=== PATIENT | female | born 1995 | race Caucasian/White ===

== ENCOUNTER → 2021-07-11 10:28 | Outpatient (BNVA) | payer OTHER, SELFPAY | PROVIDERS: PCP Internal Medicine; Visit Provider Obstetrics & Gynecology | DX: Z30.09 Encounter for other general counseling and advice on contraception (principal) | CPT/HCPCS: 99212 ==

== ENCOUNTER 2021-08-09 09:52 | Outpatient (REF) | payer OTHER, SELFPAY ==
[2021-08-10 02:47] LABS: CT PCR NOT DETECTED (Not Detect.); NG PCR NOT DETECTED (Not Detect.)
== END 2021-08-09 09:53 | disposition home or self-care (01) ==
LOC: HO.LAB 09:52
PROVIDERS: PCP Internal Medicine; Visit Provider Obstetrics & Gynecology
DX: Z30.09 Encounter for other general counseling and advice on contraception (principal)
CPT/HCPCS: 87491; 87591; 88142

== ENCOUNTER → 2021-09-11 10:07 | Outpatient (BNVA) | payer OTHER, SELFPAY | PROVIDERS: PCP Internal Medicine; Visit Provider Obstetrics & Gynecology | DX: Z30.433 Encounter for removal and reinsertion of intrauterine contraceptive device (principal) | CPT/HCPCS: 58300; 58301 ==

== ENCOUNTER 2022-01-22 09:34 | Outpatient (REF) | payer OTHER, SELFPAY ==
[2022-01-22 12:00] LABS: Alanine Aminotransferase 40 U/L (0-31); Albumin Level 4.6 g/dL (3.5-5.0); Alkaline Phosphatase 55 U/L (39-117); Anion Gap 13 (12-20); Aspartate Amino Transferase 40 U/L (5-31); Bilirubin Total 2.2 mg/dL (0.0-1.0); Blood Urea Nitrogen 8 mg/dL (9-16); Calcium 9.5 mg/dL (8.4-10.2); Carbon Dioxide 25 mmol/L (22-29); Chloride 106 mmol/L (96-108); Cholesterol 171 mg/dL; Estimated Glomerular Filt Rate > 60; Glucose Fasting 72 mg/dL (60-99); HDL Cholesterol 42 mg/dL; LDL Cholesterol Calculated 105 mg/dl; Potassium 4.1 mmol/L (3.3-5.1); Sodium 140 mmol/L (135-145); Total Protein 7.4 g/dL (6.5-8.0); Triglycerides 123 mg/dL
[2022-01-22 12:19] LABS: HBS Num1 2.04 mIU/mL (0-7.99); HBc Num1 0.15 S/CO (0.00-0.79); HBsAGNum1 0.18 S/CO (0.00-0.99); HIV AB/AG Nonreactive (Nonreactive); HIV Num 1 0.06 S/CO (0.00-0.99); Hepatitis B Core Antibody Nonreactive (Nonreactive); Hepatitis B Surface Antigen Negative (Negative); ~HepC Num1 0.09 S/CO (0.00-0.79); ~Hepatitis B Surface Antibody NONREACTIVE (Nonreactive); ~Hepatitis C Antibody Nonreactive (Nonreactive)
[2022-01-22 12:30] LABS: Free T4 (Free Thyroxine) 1.16 ng/dL (0.71-1.85); Vitamin D 25-OH Total 6.9 ng/mL (>30)
[2022-01-22 13:02] LABS: Thyroid Stimulating Hormone > 100.00 uIU/mL (0.32-4.0)
[2022-01-23 08:42] LABS: Triiodothyronine T3 Total 68 ng/dL (76-181)
[2022-01-23 09:02] LABS: Syphilis Screen Nonreactive (Nonreactive)
== END 2022-01-22 09:35 | disposition home or self-care (01) ==
LOC: HO.WFDLDS 09:34
PROVIDERS: Visit Provider Family Medicine
DX: Z00.00 Encounter for general adult medical examination without abnormal findings (principal); Z11.4 Encounter for screening for human immunodeficiency virus [HIV]; Z11.3 Encounter for screening for infections with a predominantly sexual mode of transmission; E03.9 Hypothyroidism, unspecified; E55.9 Vitamin D deficiency, unspecified
CPT/HCPCS: 36415; 80053; 80061; 82306; 84439; 84443; 84480; 86704; 86706; 86780; 86803; 87340; 87389

== ENCOUNTER 2023-03-17 09:38 | Outpatient (AMB) | payer OTHER, SELFPAY ==
--- NOTE | 2023-03-17 09:44 | MHC.PC.OV ---
Vital Signs 03/17/23 09:46 Height 4 ft 8 in Weight 190 lb 4 oz BMI 42.6 BP 124/72 Blood Pressure Location Lt brachial Position Sitting Pulse 76 Pulse Source Pulse Oximeter Pulse Oximetry (%) 98 Intake Visit Reasons: f/u medication Intake Note: pt is here f/u on levothyroxine requesting blood work to check levels Geology Scientist Required: No Accompanied by: Self / Same As Patient Allergies amoxicillin [AMOXICILLIN] Allergy (Unknown, Verified 03/17/23 09:44) N/V, vomiting hydromorphone [Dilaudid] Allergy (Unknown, Verified 03/17/23 09:44) vomitting morphine [MORPHINE] Allergy (Unknown, Verified 03/17/23 09:44) ANAPHYLAXIS Tobacco use date assessed: 03/17/23 Dental Screening Dental Screen Date: 03/17/23 Did you have a dental visit in the last 12 months?: No Did you have a dental problem in the last 6 months where you did not have access to dental care?: No Was dental information given to patient?: Yes HPI HPI Comments History of Present Illness Details 27-year-old female presents for hypothyroidism follow-up. She reports a painless lump below her left earlobe which has been present for the past 2 years. She notes that the lump has grown in size. No toothache or sore throat. Her TSH and T3 were elevated and T4 was normal in December. She reports history of anxiety, depression, and bipolar. She notes that she sees a therapist every other week. She is waiting to get connected to a psychiatrist to have psychotropic medications prescribed. She requests STD tests. She notes that she is sexually active, in a polygamous relationship, uses a barrier method for sexual intercourse with all but one partner whom she trusts. No fever, chills, body aches, genital rash, or symptoms. [facility] Medical History Hypothyroid Surgical History History of repair of anterior cruciate ligament of left knee Hx of section Family History Father Substance use disorder Paternal Grandfather Substance use disorder Social History (Reviewed 03/17/23 @ 09:47 by Glynn Berrios [facility] Apartment Patient Tobacco Use Status: Never used Tobacco e-Cigarette/Vaping Use: Never Used Second Hand Smoke Exposure: No service: No Current occupational status: employed Current occupational exposures/hazards: No Cognitive needs: No Hearing needs: No Vision needs: Yes Female Reproductive History Menstrual Age of Menarche: 10 Questionnaire PHQ-9 Over the last 2 weeks, how often have you been bothered by any of the following problems? 1. Little interest or pleasure in doing things: more than half the days 2. Feeling down, depressed, or hopeless: not at all 3. Trouble falling or staying asleep, or sleeping too much: nearly every day 4. Feeling tired or having little energy: nearly every day 5. Poor appetite or overeating: nearly every day 6. Feeling bad about yourself - or that you are a failure or have let yourself or your family down: several days 7. Trouble concentrating on things, such as reading the newspaper or watching television: nearly every day 8. Moving or speaking so slowly that other people could have noticed. Or the opposite - being so fidgety or restless that you have been moving around a lot more than usual: nearly every day 9. Thoughts that you would be better off or of hurting yourself in some way: several days Total score: 19 Depression Screening Interpretation: Positive 65270 - PHQ-9 Billing: Yes Source: Developed by Drs. Manuel Adkins, Radha Gross, Vinod Doherty and colleagues, with an educational pattie from [employer]. Thrive Questionnaire Date Thrive assessed: 03/17/23 I am a: Patient What is your living situation today?: I have a steady place to live Within the past 12 months, did the food you bought not last and you didn't have the money to get more?: Never true Within the past 12 months, did you worry whether your food would run out before you got money to buy more?: Never true Do you have trouble paying for medicines?: Yes Do you have trouble getting transportation to medical appointments?: Yes Do you have trouble paying your heating and electricity bill?: Yes Do you have trouble taking care of your child, family member or friend?: Yes Do you have trouble with day-to-day activities such as bathing, preparing meals, shopping, managing finances, etc.?: No Are you currently unemployed and looking for a job?: Yes Are you interested in more education?: Yes Please select the resources that you would like help with: None Currently or been in a relationship where the following occur: no concerns reported THANH-7 AMB Questionnaire THANH-7 Date THANH - 7 assessed: 03/17/23 Feeling nervous, anxious, or on edge: 3 = Nearly every day Not being able to stop or control worryin = Nearly every day Worrying too much about different things: 3 = Nearly every day Trouble relaxin = Nearly every day Being so restless that it is hard to sit still: 3 = Nearly every day Becoming easily annoyed or irritable: 3 = Nearly every day Feeling afraid as if something awful might happen: 1 = Several days Total THANH-7 score (0-4 normal; 5-9 mild; 10-14 moderate; 15-21 severe): 19 Source: Developed by Drs. Manuel Adkins, Radha Gross, Vinod Doherty and colleagues, with an educational pattie from [employer]. THANH-7 Assessment Billing THANH-7 Assessment Tool: THANH-7 Assessment 06937 Review of Systems Const Details: Const Denies chills, Denies fatigue, Denies fever(s), Denies headache(s) and Denies weakness ENT Denies dizziness and Denies headache(s) Card Denies chest pain, Denies lightheadedness, Denies dyspnea and Denies other (Palpitations) Resp Denies cough, Denies dyspnea, Denies wheezing and Denies other ( shortness of breath) GI Denies abdominal pain, Denies melena, Denies hematochezia, Denies change in bowel habits, Denies dyspepsia and Denies nausea Denies hematuria and Denies dysuria Musc Denies abnormal gait, Denies myalgias, Denies arthralgias, Denies numbness and Denies tingling Skin/Breast Reports lump below left ear lobe, Denies rash, Denies unusual bruising and Denies wounds Neuro Denies abnormal gait, Denies dizziness, Denies headache(s), Denies memory loss, Denies numbness, Denies Sensory deficit (Neuro), Denies tingling and Denies weakness Psych Denies anxiety and bipolar, Denies memory loss Endo Denies fatigue Aller/Immun Denies wheezing Physical exam (Primary Care) Vital Signs: Last Vital Signs Pulse 76 03/17/23 09:46 BP 124/72 03/17/23 09:46 Pulse Ox 98 03/17/23 09:46 BMI result Body Mass Index 42.6 Tobacco/Smoking Status: Tobacco use Status Tobacco use date assessed 03/17/23 03/17/23 09:48 Patient Tobacco Use Status Never used Tobacco 03/17/23 09:48 e-Cigarette/Vaping Use Never Used 03/17/23 09:48 PHQ-9: PHQ-9 Score PHQ-9: Total score 19 03/17/23 10:10 Depression Screening Interpretation: Positive Thrive Assessment: Date of Thrive Assessment Date Thrive assessed 03/17/23 03/17/23 09:53 Currently or been in a relationship where the following occur: no concerns reported Const Other: General: no acute distress and well developed Nutritional Appearance: well nourished Orientation/consciousness: patient oriented x3 HENMT Head: Yes normocephalic and Yes atraumatic Eyes General: appearance normal, both eyes and all related structures Pupils: Equal, round and reactive pupils present EOM: EOMs intact bilaterally Resp Effort & Inspection: normal respiratory effort Auscultation: clear to auscultation bilaterally Cardio Rate: regular rate Rhythm: regular rhythm Heart sounds: S1 normal heart sound present, S2 normal heart sound present, no gallops, no murmurs and no rubs GI Palpation (GI): No Abdominal aortic bruit present, Soft to palpation, nontender, No hepatosplenomegaly present and No Rebound tenderness present Auscultation: normal bowel sounds General: Yes no CVA tenderness Back/Spine/Pelvis Back: no CVA tenderness Cervical Spine: cervical ROM normal and No Cervical spine tenderness Thoracic/Lumbar Spine: thoraco-lumbar ROM normal, No pain with thoraco-lumbar ROM, No thoracic spinal tenderness and No lumbar spinal tenderness Extrem General: Yes normal to inspection, No edema and No calf tenderness Skin General: warm and dry. Normal skin color. Normal skin turgor Lesions: Approximately quarter-size, round, painless lump to the left mandible proximal to the earlobe, no erythema, edema, or overt injury or trauma Rashes: no rashes Trauma: no lacerations or abrasions Wounds: no wounds Nails: normal Neuro General: patient oriented x3, gait normal and no focal neuro deficit Cranial nerves: Yes Equal, round and reactive pupils present Cognition (Neuro): normal cognition Gait exam (Neuro): Normal gait present Sensory Exam: No Sensory deficit (Neuro) Psych Appearance: grossly normal Affect: normal affect Attitude: cooperative Thought process: Normal thought process present Assessment and Plan Assessment & Plan (1) Hypothyroid: Code(s): E03.9 - Hypothyroidism, unspecified Plan: Her TSH and T3 were elevated and T4 was normal in December She will have TSH/T4 and T3 blood work done today Currently on levothyroxine 200 mcg daily Will review lab results and make changes to her care plan if warranted (2) Screen for STD (sexually transmitted disease): Code(s): Z11.3 - Encounter for screening for infections with a predominantly sexual mode of transmission Plan: She requests STD tests. She notes that she is sexually active, in a polygamous relationship, uses a barrier method for sexual intercourse with all but one partner whom she trusts. No fever, chills, body aches, genital rash, or symptoms. Labs ordered for STD screening Will review results and make changes to her care plan if warranted Safe sexual practices encouraged Return with symptoms or concerns Verbalized understanding and agreed with the plan. (3) Lump of ear: Code(s): H93.8X9 - Other specified disorders of ear, unspecified ear Plan: She reports a painless lump below her left earlobe which has been present for the past 2 years. She notes that the lump has grown in size. No toothache or sore throat. Approximately quarter-size, round, painless lump to the left mandible proximal to the earlobe, no erythema, edema, or overt injury or trauma May be and enlarged lymph node Ultrasound ordered Return with pain or discomfort Verbalized understanding and agreed with treatment plan. (4) Anxiety: Code(s): F41.9 - Anxiety disorder, unspecified Plan: She reports history of anxiety, depression, and bipolar. She notes that she sees a therapist every other week. She is waiting to get connected to a psychiatrist to have psychotropic medications prescribed. PHQ-9 and THANH-7 scores revealed severe anxiety and depression Declined medication treatment at this time Encouraged to continue follow-up with therapist Routine exercise encouraged Advised to inform her PCP if she changes her mind on medication therapy Follow-up with new or worsening symptoms Verbalized understanding and agreed with the plan. (5) Bipolar disorder: Code(s): F31.9 - Bipolar disorder, unspecified Plan: As above Orders: Orders TSH reflex Free T4 Today E03.9 - Hypothyroidism, unspecified Triiodothyronine T3 Total Today E03.9 - Hypothyroidism, unspecified Hepatitis B,C Profile Today Z11.3 - Encounter for screening for infections with a predominantly sexual mode of transmission HIV Ab/Ag Today Z11.3 - Encounter for screening for infections with a predominantly sexual mode of transmission Syphilis Screen Today Z11.3 - Encounter for screening for infections with a predominantly sexual mode of transmission CT NG by PCR Today Z11.3 - Encounter for screening for infections with a predominantly sexual mode of transmission US soft tiss head and/or neck Today H93.8X9 - Other specified disorders of ear, unspecified ear Coding Level of Care Code Est Pt Level 4 (68119) Diagnoses Hypothyroid E03.9 Screen for STD (sexually transmitted disease) Z11.3 Lump of ear H93.8X9 Anxiety F41.9 Bipolar disorder F31.9 Additional Codes THANH-7 Assessment Billing - THANH-7 Assessment Tool: THANH-7 Assessment 29072 ([id number]) Time Spent (min) 35
[2023-03-17 09:46] VITALS: BP 124/72; PULSE 76; O2SAT 98; BMI 42.6
== END 2023-03-17 10:19 | disposition home or self-care (01) ==
PROVIDERS: PCP Family Medicine; Visit Provider Nurse Practitioner Family
DX: E03.9 Hypothyroidism, unspecified (principal); F41.9 Anxiety disorder, unspecified; F31.9 Bipolar disorder, unspecified; H93.8X9 Other specified disorders of ear, unspecified ear; Z11.3 Encounter for screening for infections with a predominantly sexual mode of transmission
CPT/HCPCS: 99214

== ENCOUNTER 2023-03-17 10:21 | Outpatient (REF) | payer OTHER, SELFPAY ==
[2023-03-17 14:50] LABS: Syphilis Screen Nonreactive (Nonreactive); TSH reflex Free T4 2.51 uIU/mL (0.32-4.0)
[2023-03-18 06:16] LABS: HBS Num1 0.11 mIU/mL (0-7.99); HBsAGNum1 0.48 S/CO (0.00-0.99); HIV AB/AG Nonreactive (Nonreactive); HIV Num 1 0.06 S/CO (0.00-0.99); Hepatitis B Core Antibody Nonreactive (Nonreactive); Hepatitis B Surface Antigen Negative (Negative); ~HepC Num1 0.06 S/CO (0.00-0.79); ~Hepatitis B Surface Antibody NONREACTIVE (Nonreactive); ~Hepatitis C Antibody Nonreactive (Nonreactive)
[2023-03-18 20:22] LABS: Triiodothyronine T3 Total 120 ng/dL (76-181)
== END 2023-03-17 10:22 | disposition home or self-care (01) ==
LOC: HO.WFDLDS 10:21
PROVIDERS: Visit Provider Nurse Practitioner Family
DX: Z11.3 Encounter for screening for infections with a predominantly sexual mode of transmission (principal); Z11.4 Encounter for screening for human immunodeficiency virus [HIV]; E03.9 Hypothyroidism, unspecified
CPT/HCPCS: 36415; 84443; 84480; 86704; 86706; 86780; 86803; 87340; 87389

== ENCOUNTER 2025-04-27 12:05 | Outpatient (AMB) | payer OTHER, SELFPAY ==
--- NOTE | 2025-04-27 12:09 | A.OFFVIS_ITS ---
Intake Visit Reasons: IUD removal Communications Advisor: Communications Advisor Present (Chela) Accompanied by: Self / Same As Patient Allergies amoxicillin (AMOXICILLIN) Allergy (Unknown, Verified 04/27/25 12:13) N/V, vomiting hydromorphone (Dilaudid) Allergy (Unknown, Verified 04/27/25 12:13) vomitting morphine (MORPHINE) Allergy (Unknown, Verified 04/27/25 12:13) ANAPHYLAXIS HPI Comments Details: Presenting requesting IUD removal, the patient is interested in conceiving [facility] Medical History Hypothyroid Surgical History History of repair of anterior cruciate ligament of left knee Hx of section Family History Father Substance use disorder Paternal Grandfather Substance use disorder Social History Housing: Apartment Patient Tobacco Use Status: Never used Tobacco e-Cigarette/Vaping Use: Never Used Second Hand Smoke Exposure: No service: No Current occupational status: employed Current occupational exposures/hazards: No Cognitive needs: No Hearing needs: No Vision needs: Yes Female Reproductive History Menstrual Age of Menarche: 10 Review of Systems Const All systems reviewed & are unremarkable except as noted in HPI and below Physical Exam General: Yes no CVA tenderness External Female Exam: normal external appearance and normal appearance of the urethra Speculum Exam - Vagina: normal appearance of the vagina, normal palpation, no lesions and no masses Speculum Exam - Cervix: normal appearance of the cervix, normal palpation, no lesions, no masses, nontender and Other cervical findings present (IUD string in place) Bimanual exam- vagina & uterus: normal bimanual exam, normal palpation, uterine size normal, normal palpation, uterine shape normal, No Cervical tenderness present and non-tender Bimanual Exam- Adnexa, other: normal adnexae Back/Spine/Pelvis Back: no CVA tenderness Office Procedures IUD Insert/Removal Details Details: Counseling/Consent: After discussing with the patient the risks of the procedure including bleeding, infection, scar tissue formation, , possible injury to blood vessels or nerves, chronic arm pain, blood transfusion, and irregular unpredictable bleeding Alternative options were discussed with the patient including but not limited: Do nothing. The patient signed the consent and agreed with the plan; all questions answered. Urine test was done in the office and was negative Preop dx: Requesting IUD removal Op: IUD removal Post op dx: same EBL= 10 cc Procedure: The patient was put in the dorsal lithotomy position a speculum was inserted in the vagina the IUD thread identified. Using a Shea clamp the thread was grasped and the IUD pulled out with no complications. The patient tolerated the procedure well and was advised to use a different method for contraception. Discharge instructions: Instructions were given to the pt to call if temp>100.4, abdominal pain heavy vaginal bleeding, n/v occur. The patient verbalized understanding and all questions answered. This note was generated with a voice recognition program. Some errors may have been overlooked during the review of this note. Sometimes these errors may affect the content or meaning of a given sentence. 66339-[id number] Removal Procedure code (CPT) selection complete Assessment & Plan Assessment & Plan (1) Encounter for IUD removal: Code(s): Z30.432 - Encounter for removal of intrauterine contraceptive device Category: Medical Plan: UPT done in the office was negative. Mirena IUD removed, see procedure note Instructions given to patient to start vitamin 1 tablet p.o. q.d. Coding Level of Care Code Procedure Only Diagnoses Encounter for IUD removal Z30.432 CPT Codes Details - CPT: 35406-XNR Removal ([id number])
--- OUTSIDE RECORDS SUMMARY | 2025-04-27 14:43 | XMS_ITS | Clinical Summary ---
Author Organization [facility] Address [address] [place] [address] Phone Care Team Providers Care Director Pediatric Name Role Phone Keon Coffey MD Primary Care Provider [phone] Allergies Active Allergy Reactions Criticality Noted Date Comments Amoxicillin Nausea And Vomiting 09/02/2024 Hydromorphone Nausea And Vomiting 09/02/2024 Milk Containing Products (Dairy) 04/2025 Medications levothyroxine (SYNTHROID, LEVOTHROID) 200 mcg tablet Take 1 tablet (200 mcg total) by mouth 1 (one) time each day before breakfast. 30 each 2 09/07/19 25 026 Active hydrOXYzine HCL (ATARAX) 25 mg tablet Take 1 tablet (25 mg total) by mouth 3 (three) times a day if needed for anxiety. 90 each 09/06/19 25 Active levonorgestreL (MIRENA) 21 mcg/24hr (up to 8 yrs) 52 mg IUDIndications:pr egnancy contraception 1 Device (1 each total) by intrauterine route 1 (one) time. Active Active Problems Problem Noted Date Diagnosed Date Mass of left parotid gland 09/06/2024 Bipolar affective disorder in remission ([facility] V24) 09/03/2024 PTSD (post-traumatic stress disorder) 09/03/2024 Anxiety 09/03/2024 Other specified hypothyroidism 09/03/2024 Abscess of parotid gland 09/02/2024 Surgical History Surgery Date Site/Laterality Comments ANTERIOR CRUCIATE LIGAMENT REPAIR SECTION SECTION, LOW TRANSVERSE Medical History Medical History Date Comments Bipolar affective disorder in remission ([facility] V24) 09/03/2024 PTSD (post-traumatic stress disorder) 09/03/2024 Anxiety 09/03/2024 Other specified hypothyroidism 09/03/2024 Social History Tobacco Use Types Packs/Day Years Used Date Smoking Tobacco: Never Tobacco Cessation:Counseling Given: No Alcohol Use Standard Drinks/Week Comments Yes 0 (1 standard drink = 0.6 oz pur e alcohol) rare use- less than once/ week Housing Instability Answer Date Recorde d Are you worried that in the next 2 months you may not have stable housing? Yes 09/05/2024 Food Access & Nutrition Answer Date Rec orded Do you have access to a vari ety of food including fruits and vegetables? Yes 09/05/2024 Access to Healthcare Answer Date Record ed Within the last 3 months, ho w many times did you visit the emergency department for your medical care? 2 09/05/2024 Health Literacy Answer Date Recorded How often do you need to hav e someone help you when you read instructions, pamphlets, or other written material from your doctor or pharmacy? Never 09/05/2024 Caregiver: How often do you need to have someone help you when you read instructions, pamphlets, or other written material from your doctor or pharmacy? Not on file 09/05/2024 Financial Risk Answer Date Recorded How hard is it for you to pa y for the very basics like food, housing, medical care, and air conditioning / heating? Hard 09/05/2024 Transportation Answer Date Recorded Has the lack of transportati on kept you from meetings, work, or from getting things needed for daily living? Not on file 09/05/2024 Has the lack of transportati on kept you from medical appointments or from getting medications? Yes 09/05/2024 Social Isolation Answer Date Recorded How often do you feel lonely or isolated from th ose around you? Often 09/05/2024 Food Risk Answer Date Recorded Within the past 12 months we worried whether our food would run out before we got money to buy more. Sometimes true 025 Within the past 12 months th e food we bought just didn't last and we didn't have money to get more. Sometimes true 09/05/2024 Dependent Care Answer Date Recorded Do you need help finding or paying for care for your loved ones. For example, child custody evaluator or elderly care for an older adult? No 09/05/2024 Education Answer Date Recorded Do you think completing more education or training, like finishing a GED, going to college, or learning a trade, would be helpful for you? No 09/05/2024 Employment and Income Answer Date Recor ded During the last four weeks, have you been actively looking for work? Yes 09/05/2024 Living Situation Answer Date Recorded What is your living situation? 0 09/05/2024 Interpersonal Safety Answer Date Record ed Physical Abuse 12/20/2024 Verbal Abuse 12/20/2024 Comments No Sex and Gender Information Value Date Recorded Sex Assigned at Female 09/02/2024 3:30 PM EST Legal Sex Female 12:11 PM EST Gender Identity Female 09/02/2024 3:30 PM EST Sexual Orientation Straight 09/02/2024 3: 30 PM EST Obstetrics History Para Term AB IAB SAB Ectopic Multiple Livin g Live Births 1 1 Date Outcome GA Total Labor Labor/2nd/3rd Weight Sex Type Anes PTL Tanya A1 A5 Name Clin Para Last Filed Vital Signs Vital Sign Reading Time Taken Comments Blood Pressure 126/73 12/20/2024 11:42 AM EDT Pulse 79 12/20/2024 11:42 AM EDT Temperature 36.2 C (97.2 F) 12/20/2024 11:42 AM EDT Respiratory Rate 18 12/20/2024 11:42 AM EDT Oxygen Saturation 96% 12/20/2024 11:42 AM EDT Inhaled Oxygen Concentration - - Weight 74.8 kg (165 lb) 12/01/2024 3:00 PM EDT Height 142.2 cm (4' 8 ) 12/01/2024 3:00 PM EDT Body Mass Index 36.99 12/01/2024 3:00 PM EDT Plan of Treatment Health Maintenance Due Date Last Done Comments DTaP,Tdap,and Td Vaccines (1 - Tdap) 2013 Hepatitis B Vaccines (1 of 3 - 19+ 3-dose series) 2013 Cervical Cancer Screening: P ap Smear 2015 Depression Screening 08/25/2024 HIV Screening 09/02/2024 Hepatitis C Screening 09/02/2024 COVID-19 Vaccine ( - 2023-2 5 season) 2025 Influenza Vaccine (#1) 2025 Social Influencers of Health Screening 09/05/2025 09/05/2024 HIB Vaccines Aged Out No longer eligi ble based on patient's age to complete this topic HPV Vaccines Aged Out No longer eligi ble based on patient's age to complete this topic Hepatitis A Vaccines Aged Out No long er eligible based on patient's age to complete this topic IPV Vaccines Aged Out No longer eligi ble based on patient's age to complete this topic MMR Vaccines Aged Out No longer eligi ble based on patient's age to complete this topic Meningococcal ACWY Vaccine Aged Out N o longer eligible based on patient's age to complete this topic Meningococcal B Vaccine Aged Out No l onger eligible based on patient's age to complete this topic Pneumococcal Vaccine: Pediat rics (0 to 5 Years) and At-Risk Patients (6 to 49 Years) Aged Out No longer eligi ble based on patient's age to complete this topic RSV Immunization Patients Un geneva 20 months Aged Out No longer eligible b ased on patient's age to complete this topic Varicella Vaccines Aged Out No longer eligible based on patient's age to complete this topic Insurance [employer] Advance Directives * Full Code - Default (Latest Code Status on File) Date Activated Date Inactivated Comments 09/05/2024 2:55 AM 09/06/2024 2:02 PM This is orde r is used when code status has not been discussed with the patient, or code status is otherwise unknown/unconfirmed To update the patient's code status, place a code status order. Do not modify or discontinue any currently active code status orders. * Full Code - Confirmed Date Activated Date Inactivated Comments 09/05/2024 12:08 AM 09/05/2024 2:55 AM This code s tatus was ascertained in the following way: Code status discussion: discussion with patient To update the patient's code status, place a code status order. Do not modify or discontinue any currently active code status orders. * Full Code - Default Date Activated Date Inactivated Comments 09/02/2024 8:53 PM 09/03/2024 3:45 AM This is order is used when code status has not been discussed with the patient, or code status is otherwise unknown/unconfirmed To update the patient's code status, place a code status order. Do not modify or discontinue any currently active code status orders. Care Teams Director Pediatric Relationship Specialty Start Date End Date Keon Coffey MD PCP - General Family Medicine 09/04/24
== END 2025-04-27 12:19 | disposition home or self-care (01) ==
LOC: HO.HWS 12:05
PROVIDERS: PCP Nurse Practitioner Family; Visit Provider Obstetrics & Gynecology
DX: Z30.432 Encounter for removal of intrauterine contraceptive device (principal); Z32.02 Encounter for pregnancy test, result negative
CPT/HCPCS: 58301

== ENCOUNTER → 2025-04-27 12:05 | Outpatient (BNVA) | payer OTHER, SELFPAY | PROVIDERS: PCP Nurse Practitioner Family; Visit Provider Obstetrics & Gynecology | DX: Z32.02 Encounter for pregnancy test, result negative (principal); Z30.432 Encounter for removal of intrauterine contraceptive device | CPT/HCPCS: 58301; 81025 ==